=== PATIENT | female | born 1990 | race Caucasian/White ===

== ENCOUNTER → 2023-12-05 16:12 | Outpatient (REF) | payer BC, SELFPAY | LOC: RAD 16:12 | PROVIDERS: ATTENDING PHYSICIAN Nurse Practitioner Family; FAMILY PHYSICIAN Nurse Practitioner Family | DX: N39.9 Disorder of urinary system, unspecified (principal) | CPT/HCPCS: 76830; 76856 ==

== ENCOUNTER 2024-11-30 07:49 | Emergency (ER) | payer BC, SELFPAY ==
[2024-11-30 07:51] VITALS: BP 134/61
--- NOTE | 2024-11-30 08:28 | ED.GENMED ---
History of Present Illness
General
Chief Complaint: Back Pain
Time Seen by Provider: 11/30/24 08:03
History of Present Illness
History of Present Illness:
34-year-old female presents to the emergency department for evaluation of nontraumatic mid low back pain. She is G4, P2 currently 12 weeks gestational age, initial screening ultrasound was performed at 8 weeks GA with reported IUP, this was done at
[facility]. States she woke today with back pain that worsens when she is upright or lying flat. No radiation of symptoms or neuropathic symptoms in the lower extremities. No dysuria or hematuria. Denies vaginal
bleeding or discharge.
Review of Systems
Review of Systems
Allergies reviewed?: Yes
All Other Systems: ROS reviewed and negative except as documented in HPI and ROS
Phy Exam
Physical Exam
Physical Exam:
GEN: Well appearing, NAD, WDWN
HEENT: Oral mucosa moist, no scleral icterus
Cardiac: Regular rate
Lung: No respiratory distress, no tachypnea
MSK: No gross deformity or injuries. No midline lumbar spine or paraspinous muscle tenderness
Skin: Good color, no pallor or jaundice, no rashes
Neuro: AO x3, moves all extremities freely. Bilateral lower extremity strength and sensation is intact in all smith and symmetric
Psych: Calm, cooperative
Course
Orders/Labs/Results
Orders:
Orders
11/30/24 08:27
Urinalysis Reflex To Culture Urgent
Date Specimen was Collected: 11/30/24
Time Specimen was Collected: 08:21
Urine Microscopic Reflex Cult Urgent
Urine Culture Urgent
STONE Source: U
Specimen Description:
Date Specimen was Collected: 11/30/24
Time Specimen was Collected: 08:21
11/30/24 08:55
US 1st Trimester Urgent
Comment: known IUP
Reason For Exam: pelvic pain, 12 wks
Abnormal Lab Results
11/30/24
08:27
Ur Occult Blood Reflex 2+ A
(Negative)
Leukocyte Esterase Rfl 3+ A
(Negative)
Urine Bacteria (Reflex) Moderate A
(Negative)
Urine Albumin (Reflex) 2+ A
(Neg - Trace)
Vital Signs
Initial and Last Documented VS:
Initial Vital Signs
Temp Pulse Resp BP Pulse Ox
98.0 F 93 16 134/61 100
11/30/24 07:51 11/30/24 07:51 11/30/24 07:51 11/30/24 07:51 11/30/24 07:51
Last Documented Vital Signs
Temp Pulse Resp BP Pulse Ox
98.0 F 93 16 134/61 100
11/30/24 07:51 11/30/24 07:51 11/30/24 07:51 11/30/24 07:51 11/30/24 08:30
MDM/Problems Addressed
MDM/Problems Addressed:
Patient does have bacteriuria but not a strong urinalysis indicating an infection. I did send a prescription for antibiotics however recommended she hold off on taking this until urine culture is resulted which she is amenable to. Ultrasound shows
no complications. May be mechanical low back pain, recommend Tylenol and home stretching exercises
*Pulse Oximetry
SaO2: 100
Oxygen Mode of Delivery: Room air
Patient hypoxic: no
*Critical Care Note
Total Time (30-74mins, 75-104mins- exclusive of procedures): Not Applicable
ED Attending Note
-
Portions of this chart may have been created with voice recognition software.� Occasional wrong word or��sound alike� substitutions may have occurred due to the inherent limitations of voice recognition software.
Discharge Plan
Departure
Patient Disposition: Home (Routine Discharge)
Date of Disposition: 11/30/24
Time of Disposition: 11:04
Patient with high blood pressure during this ER visit?: No
Discharge Problem:
Asymptomatic bacteriuria during
Instructions: Asymptomatic bacteriuria
Prescriptions:
New
cephalexin 500 mg capsule
500 mg PO BID 7 Days Qty: 14 0RF
Referrals:
Emiliana Azar MD [Family Provider, Internal Medicine]
Interventions
Interventions:
*Risk Screen - Suicide Last Done: 11/30/24 07:51
*Neglect/Abuse Screening Last Done: 11/30/24 07:51
*Nursing Disposition Last Done: 11/30/24 11:27
ED-Musculoskeletal Assessment Last Done: 11/30/24 08:28
Discharge Date and Time
Discharge Date/Time: 11/30/24 11:29
Print Language: INDIAN
[2024-11-30 08:53] LABS: Urine Character Clear (Clear)
[2024-11-30 09:00] LABS: Urine Squamous Cell 21-25 /LPF (Few)
[2024-11-30 09:02] LABS: Urine Red Blood Cell 0-2 /HPF (0-2)
== END 2024-11-30 11:29 | disposition home or self-care (01) ==
LOC: EMR 07:49
PROVIDERS: Physician Assistant; EMERGENCY PHYSICIAN Emergency Medicine; FAMILY PHYSICIAN Emergency Medicine
DX: O26.891 Other specified pregnancy related conditions, first trimester (principal); R82.71 Bacteriuria; M54.50 Low back pain, unspecified; Z3A.12 12 weeks gestation of pregnancy
CPT/HCPCS: 99284; 76801; 81003; 81015; 87086